=== PATIENT | female | born 1955 | race Caucasian/White ===

== ENCOUNTER → 2021-06-30 | Outpatient (CLI) ==
[~2021-06-30] MED LIST: CLAR10CA3 PO; DOXY-350 PO; LEXA1TAB PO; LISI10TA22 PO; PANT40TA29 PO
== END ==
LOC: EDBD → M LABSMTC 09:32 → EDUNIT# 09:40
PROVIDERS: ATTEND Anesthesiology
DX: Z01.812 Encounter for preprocedural laboratory examination (principal); Z20.822 Contact with and (suspected) exposure to COVID-19

== ENCOUNTER 2021-07-05 08:18 | Day surgery (SDC) | payer BC ==
[~2021-07-05] VITALS: Ht 149.9 cm; Wt 70.3 kg
[~2021-07-05 08:18] MED LIST changes: +NS 1,000 ML IV ONE
[2021-07-05] MEDS ORDERED: LIDOCAINE 2% 100MG/5ML SDV (FOR ANES.) As Ordered ONE (09:14)
[2021-07-05] MEDS ORDERED: fentaNYL 100 MCG/2 ML INJECTION (J3010) As Ordered ONE (09:14)
[2021-07-05] MEDS ORDERED: propofoL 200 MG/20 ML VIAL As Ordered ONE (09:14)
--- NOTE | 2021-07-05 09:52 | ROOR ---
Patient Name: Vanessa Saha Procedure Date: 07/05/2021 9:25 AM Date of : 1955 Age: 65 Room: [facility] Gender: Female Note Status: Finalized Procedure: Upper Endoscopy + Biopsies Indications: Heartburn, Exclusion of Burgos's esophagus Providers: Sahil Potter MD Referring MD: Sahil Potter MD, Zander John MD Requesting Provider: Medicines: Monitored Anesthesia Care Complications: No immediate complications. Procedure: Pre-Anesthesia Assessment: - The heart rate, respiratory rate, oxygen saturations, blood pressure, adequacy of pulmonary ventilation, and response to care were monitored throughout the procedure. The Endoscope was introduced through the mouth, and advanced to the second part of duodenum. The upper GI endoscopy was accomplished without difficulty. The patient tolerated the procedure well. Findings: The Z-line was irregular and was found 25 cm from the incisors. Multiple biopsies were obtained with cold forceps for evaluation to rule out Burgos's Esophagus randomly in the distal esophagus. A large hiatal hernia was present. No other significant abnormalities were identified in a careful examination of the stomach. The exam of the duodenum was otherwise normal. Impression: - Z-line irregular, 25 cm from the incisors. - Large hiatal hernia. - Multiple biopsies were obtained in the distal esophagus. Recommendation: - Patient has a contact number available for emergencies. The signs and symptoms of potential delayed complications were discussed with the patient. Return to normal activities tomorrow. Written discharge instructions were provided to the patient. - Discharge patient to home. - Follow an antireflux regimen. - Continue present medications. - Await pathology results. - Telephone GI clinic for pathology results in 1 week. - Repeat upper endoscopy in 1 year for surveillance based on pathology results. - Return to referring physician. - The findings and recommendations were discussed with the patient's family. Procedure Code(s): --- Professional --- 67405, Esophagogastroduodenoscopy, flexible, transoral; with biopsy, single or multiple Diagnosis Code(s): --- Professional --- K22.8, Other specified diseases of esophagus K44.9, Diaphragmatic hernia without obstruction or gangrene R12, Heartburn CPT copyright 2019 [employer]. All rights reserved. The codes documented in this report are preliminary and upon facility operations manager review may be revised to meet current compliance requirements. Sahil Potter MD Sahil Potter MD 07/05/2021 9:51:33 AM Electronically signed by Sahil Potter MD Number of Addenda: 0 Note Initiated On: 07/05/2021 9:25 AM Estimated Blood Loss: Estimated blood loss: none.
[2021-07-05 10:11] VITALS: BP 138/75
[2021-07-05] MEDS ORDERED: ONDANSETRON 4 MG ORAL DISINTEGRATING TAB SL ONE (10:40)
== END 2021-07-05 11:09 | disposition home or self-care (01) ==
LOC: M OPP 08:18 → EDBD 08:45 → M OPP 11:09
PROVIDERS: ATTEND Internal Medicine Gastroenterology
DX: K22.8 Other specified diseases of esophagus (principal); K44.9 Diaphragmatic hernia without obstruction or gangrene; K21.9 Gastro-esophageal reflux disease without esophagitis; R13.10 Dysphagia, unspecified; R12 Heartburn; Z79.899 Other long term (current) drug therapy
CPT/HCPCS: 43239; 88305; J3010; Q0162